=== PATIENT | male | born 1985 | race American Indian/Alaskan Native ===

== ENCOUNTER 2017-08-07 21:13 | Emergency (ER) | payer MEDICAID ==
[2017-08-07 21:28] VITALS: BP 125/80
--- NOTE | 2017-08-07 23:25 | EDM.PDOC ---
ED HPI GENERAL MEDICAL PROBLEM - General Chief Complaint: ENT Problem Stated Complaint: COLD [id number] Time Seen by Provider: 08/07/17 23:20 Source of Information: Reports: Patient History Limitations: Reports: No Limitations - History of Present Illness INITIAL COMMENTS - FREE TEXT/NARRATIVE: c/o ear pain since last Thursday. Both ears draining, sore throat, no recent fevers. Occasional cough Bilateral Ear Pain Score (Numeric/FACES): 9 - Related Data Allergies Allergy/AdvReac Type Severity Reaction Status Date / Time No Known Allergies Allergy Verified 08/07/17 21:28 Home Meds: Home Meds . [No Known Home Meds] 12/14/14 [History] Past Medical History - Past Health History Medical/Surgical History: Denies Medical/Surgical History Social & Family History - Tobacco Use Smoking Status *Q: Never Smoker Years of Tobacco use: 14 Used Tobacco, but Quit: No Second Hand Smoke Exposure: No - Alcohol Use Days Per Week of Alcohol Use: 3 Number of Drinks Per Day: 12 Total Drinks Per Week: 36 - Recreational Drug Use Recreational Drug Use: No Drug Use in Last 12 Months: Yes Recreational Drug Type: Reports: Marijuana/Hashish Recreational Drug Use Frequency: Socially ED ROS ENT - Review of Systems Review Of Systems: See Below Constitutional: Reports: Fever HEENT: Reports: Ear Discharge, Ear Pain Respiratory: Reports: Cough Cardiovascular: Reports: No Symptoms GI/Abdominal: Reports: No Symptoms Musculoskeletal: Reports: No Symptoms Skin: Reports: No Symptoms Neurological: Reports: No Symptoms Psychiatric: Reports: No Symptoms ED EXAM, ENT - Physical Exam Exam: See Below Exam Limited By: No Limitations General Appearance: Alert, Mild Distress Eye Exam: Bilateral Eye: EOMI Ears: Normal External Exam, Canal Discharge, TM Fluid, TM Perforation. No: Normal TMs Nose: Normal Inspection, Normal Mucousa Mouth/Throat: Normal Inspection, Tonsillar Erythema Neck: Normal Inspection, Full Range of Motion Respiratory/Chest: No Respiratory Distress, Lungs Clear, Normal Breath Sounds Cardiovascular: Normal Peripheral Pulses, Regular Rate, Rhythm GI/Abdominal: Soft Extremities: Normal Inspection Neurological: Alert, Oriented Psychiatric: Normal Affect, Normal Mood Skin: Warm, Dry, Intact, Normal Color Course - Vital Signs Last Recorded V/S: Last Vital Signs Temp 97.6 F 08/07/17 21:26 Pulse 65 08/07/17 21:26 Resp 18 08/07/17 21:26 BP 125/80 08/07/17 21:26 Pulse Ox 97 08/07/17 21:26 - Orders/Labs/Meds Meds: Medications Discontinued Medications Generic Name Dose Route Start Last Admin Trade Name Nahid PRN Reason Stop Dose Admin Amoxicillin 500 mg 08/07/17 23:28 08/07/17 23:46 Amoxil PO 08/07/17 23:29 500 mg ONETIME ONE Administration Departure - Departure Time of Disposition: 23:24 Disposition: Home, Self-Care 01 Condition: Good Clinical Impression: Rupture of tympanic membrane with acute suppurative otitis media Qualifiers: Laterality: bilateral Recurrence: not specified as recurrent Qualified Code(s) : H66.013 - Acute suppurative otitis media with spontaneous rupture of ear drum , bilateral URI (upper respiratory infection) Qualifiers: URI type: unspecified viral URI Qualified Code(s): J06.9 - Acute upper respiratory infection, unspecified - Discharge Information Instructions: Eardrum Perforation, [id number] Referrals: PCP,None [Primary Care Provider] - Forms: ED Department Discharge Additional Instructions: tylenol or ibuprofen for discomfort amoxicillin 500mg one three times daily for 10 days follow up in clinic 7-10 days
[2017-08-07] MEDS ORDERED: Amoxicillin 500 MG Cap PO ONE (23:28)
== END 2017-08-07 23:49 | disposition home or self-care (01) ==
LOC: DL.ED 21:13
DX: H66.013 Acute suppurative otitis media with spontaneous rupture of ear drum, bilateral (principal); J06.9 Acute upper respiratory infection, unspecified
CPT/HCPCS: 99282; A9270

== ENCOUNTER 2017-11-20 21:44 | Emergency (ER) | payer MEDICAID ==
[2017-11-20] MEDS ORDERED: Clindamycin Phosphate 900 MG in Sodium Chloride 0.9% 100 ML IV ONE (22:19)
[2017-11-20] MEDS ORDERED: Sodium Chloride 0.9% 1,000 ML IV ONE (22:19)
[2017-11-20 22:27] LABS: CHLORIDE,CL 104 mmol/L (98-109); SODIUM,NA 142 mmol/L (138-146)
--- NOTE | 2017-11-20 22:49 | EDM.PDOC ---
ED HPI GENERAL MEDICAL PROBLEM - General Chief Complaint: Lower Extremity Injury/Pain Stated Complaint: [id number] LEG INFECTED Time Seen by Provider: 11/20/17 22:44 Source of Information: Reports: Patient History Limitations: Reports: No Limitations - History of Present Illness INITIAL COMMENTS - FREE TEXT/NARRATIVE: c/o opened sore left low leg area since Thursday now all reddened and swollen more and painful not seen anyone. Left Ankle Pain Score (Numeric/FACES): 9 - Related Data Allergies Allergy/AdvReac Type Severity Reaction Status Date / Time No Known Allergies Allergy Verified 08/07/17 21:28 Home Meds: Home Meds . [No Known Home Meds] 12/14/14 [History] Past Medical History - Past Health History Medical/Surgical History: Denies Medical/Surgical History Social & Family History - Family History Family Medical History: Noncontributory - Tobacco Use Smoking Status *Q: Never Smoker - Recreational Drug Use Recreational Drug Use: No Review of Systems - Review of Systems Review Of Systems: ROS reveals no pertinent complaints other than HPI. ED EXAM, GENERAL - Physical Exam Exam: See Below Exam Limited By: No Limitations General Appearance: Alert, WD/WN, Mild Distress, Other (leg sore pain) Ears: Hearing Grossly Normal Throat/Mouth: Normal Voice, No Airway Compromise Head: Atraumatic Neck: Non-Tender, Full Range of Motion Respiratory/Chest: No Respiratory Distress Cardiovascular: Regular Rate, Rhythm GI/Abdominal: Soft, Non-Tender Extremities: Other (left lower medial ankle area woth open sore dry, local erythema without lymphangitis, NV wnl, gait limited to pain) Neurological: Alert, Oriented, Normal Cognition, No Motor/Sensory Deficits Psychiatric: Flat Affect Skin Exam: Warm, Dry, Normal Color Lymphatic: No Adenopathy Course - Vital Signs Last Recorded V/S: Last Vital Signs Temp 36.6 C 11/20/17 21:51 Pulse 81 11/20/17 21:51 Resp 16 11/20/17 21:51 BP 122/62 11/20/17 21:51 Pulse Ox 96 11/20/17 21:51 - Orders/Labs/Meds Orders: Active Orders 24 hr Category Date Time Status CULTURE BLOOD [BC] Stat Lab 11/20/17 22:06 Results Labs: Laboratory Tests 11/20/17 11/20/17 Range/Units 22:06 22:06 WBC 8.0 (5.0-10.0) 10^3/uL RBC 4.72 (4.6-6.2) 10^6/uL Hgb 14.1 (14.0-18.0) g/dL Hct 42.1 (40.0-54.0) % MCV 89.2 (80-100) fL MCH 29.9 (27.0-34.0) pg MCHC 33.5 (33.0-35.0) g/dL Plt Count 258 (150-450) 10^3/uL Neut % (Auto) 57.8 (42.2-75.2) % Lymph % (Auto) 31.0 (20.5-50.1) % Stan[place]aus % (Auto) 8.6 H (2-8) % Eos % (Auto) 2.2 (1.0-3.0) % Baso % (Auto) 0.4 (0.0-1.0) % Sodium 142 (138-146) mmol/L Potassium 4.1 (3.5-4.9) mmol/L Chloride 104 (98-109) mmol/L Carbon Dioxide 27 (24-29) mmol/L Anion Gap 15.1 BUN 9 (8-26) mg/dL Creatinine 1.0 (0.6-1.3) mg/dL Est Cr Clr Drug Dosing 83.69 mL/min Estimated GFR (MDRD) > 60 Glucose 107 H (70-105) mg/dL Calcium Meds: Medications Discontinued Medications Generic Name Dose Route Start Last Admin Trade Name Freq PRN Reason Stop Dose Admin Clindamycin Phosphate 900 mg/ 106 mls @ 200 mls/hr 11/20/17 22:19 11/20/17 22 :41 Sodium Chloride IV 11/20/17 22:50 200 mls/hr ONETIME ONE Administration Sodium Chloride 1,000 mls @ 999 mls/hr 11/20/17 22:19 11/20/17 22:40 Normal Saline IV 11/20/17 23:19 999 mls/hr .BOLUS ONE Administration - Re-Assessments/Exams Free Text/Narrative Re-Assessment/Exam: 11/20/17 22:47 results discussed with pt & mother Departure - Departure Time of Disposition: 23:32 Disposition: Home, Self-Care 01 Condition: Good Clinical Impression: Infected open wound - Discharge Information Instructions: Wound Infection, [id number] Referrals: PCP,None [Primary Care Provider] - Forms: ED Department Discharge Additional Instructions: 1) elevate leg as much as possible next 4 to 5 days 2) keep wound clean dry covered 3) wound check Thursday or Thursday at the clinic 4) recheck if looks worse 5) take tyelnol or motrin for pain rx given; clindamycin 150mg qid x 40 - My Orders Last 24 Hours: My Active Orders 11/20/17 22:06 CULTURE BLOOD [BC] Stat - Assessment/Plan Last 24 Hours: My Active Orders 11/20/17 22:06 CULTURE BLOOD [BC] Stat
[2017-11-20 23:37] VITALS: BP 97/56
== END 2017-11-20 23:43 | disposition home or self-care (01) ==
LOC: DL.ED 21:44
DX: S81.802A Unspecified open wound, left lower leg, initial encounter (principal); X58.XXXA Exposure to other specified factors, initial encounter
CPT/HCPCS: 36415; 73600; 80048; 85025; 87040; 96365; 96368; 99283; J7030; J7050; S0077

== ENCOUNTER 2017-12-10 15:47 | Emergency (ER) | payer MEDICAID ==
[2017-12-10 15:57] VITALS: BP 130/96
[2017-12-10] MEDS ORDERED: Ciprofloxacin 500 MG Tab PO ONE (16:33)
[2017-12-10] MEDS ORDERED: Hydrocortisone/Neomycin/Polymyxin B Otic Susp 10 ML Bottle EARLF ONE (16:33)
--- NOTE | 2017-12-10 16:42 | EDM.PDOC ---
Scribed by Kristen Sanchez 12/10/17 0882 for Devon Quintero MD ED HPI GENERAL MEDICAL PROBLEM - General Chief Complaint: ENT Problem Stated Complaint: EAR INFECTION [phone] Time Seen by Provider: 12/10/17 16:27 Source of Information: Reports: Patient, RN, RN Notes Reviewed History Limitations: Reports: No Limitations - History of Present Illness INITIAL COMMENTS - FREE TEXT/NARRATIVE: Patient presents to ER with complaint of left ear pain with drainage x2 days. Onset was after swimming in the [place]. Denies fever or chills. Onset Date: 12/08/17 Duration: Getting Worse Location: Reports: Other (left ear) Quality: Reports: Ache Severity: Moderate Improves with: Reports: None Worsens with: Reports: None Associated Symptoms: Reports: No Other Symptoms Left Ear Pain Score (Numeric/FACES): 9 - Related Data Allergies Allergy/AdvReac Type Severity Reaction Status Date / Time No Known Allergies Allergy Verified 08/07/17 21:28 Home Meds: Home Meds . [No Known Home Meds] 12/14/14 [History] Past Medical History - Past Health History Medical/Surgical History: Denies Medical/Surgical History HEENT History: Reports: Impaired Vision Social & Family History - Family History Family Medical History: Noncontributory - Tobacco Use Smoking Status *Q: Never Smoker - Caffeine Use Caffeine Use: Reports: Coffee, Soda, Tea - Recreational Drug Use Recreational Drug Use: No ED ROS ENT - Review of Systems Review Of Systems: ROS reveals no pertinent complaints other than HPI. ED EXAM, ENT - Physical Exam Exam: See Below Exam Limited By: No Limitations General Appearance: Alert, WD/WN, No Apparent Distress Eye Exam: Bilateral Eye: Normal Inspection Ears: Auricular Tenderness (left), Canal Discharge (yellow left), Canal Swelling (left), Other (right ear normal to exam. ) Nose: Normal Inspection, Normal Mucousa, No Blood Mouth/Throat: Normal Inspection Head: Atraumatic, Normocephalic Neck: Normal Inspection, Supple, Non-Tender, Full Range of Motion Respiratory/Chest: No Respiratory Distress, Lungs Clear, Normal Breath Sounds, No Accessory Muscle Use, Chest Non-Tender Cardiovascular: Normal Peripheral Pulses, Regular Rate, Rhythm, No Edema, No Gallop, No JVD, No Murmur, No Rub GI/Abdominal: Normal Bowel Sounds, Soft, Non-Tender, No Organomegaly, No Distention, No Abnormal Bruit, No Mass (Male) Exam: Deferred Rectal (Males) Exam: Deferred Back: Normal Inspection, Full Range of Motion Extremities: Normal Inspection, Normal Range of Motion, Non-Tender, No Pedal Edema, Normal Capillary Refill Neurological: Alert, Oriented, CN II-XII Intact, Normal Cognition, Normal Gait, Normal Reflexes, No Motor/Sensory Deficits Psychiatric: Normal Affect, Normal Mood Skin: Warm, Dry, Intact, Normal Color, No Rash Course - Vital Signs Last Recorded V/S: Last Vital Signs Temp 36.7 C 12/10/17 15:56 Pulse 64 12/10/17 15:56 Resp 14 12/10/17 15:56 BP 130/96 H 12/10/17 15:56 Pulse Ox 98 12/10/17 15:56 - Orders/Labs/Meds Meds: Medications Discontinued Medications Generic Name Dose Route Start Last Admin Trade Name Desmondq PRN Reason Stop Dose Admin Ciprofloxacin 500 mg 12/10/17 16:33 Ciprofloxacin Hcl PO 12/10/17 16:34 ONETIME ONE Neomycin/Polymyxin/Hydrocortisone 1 ml 12/10/17 16:33 Cortisporin Otic Susp EARLF 12/10/17 16:34 ONETIME ONE Departure - Departure Time of Disposition: 16:31 Disposition: Home, Self-Care 01 Condition: Good Clinical Impression: Left otitis externa Qualifiers: Otitis externa type: swimmer's ear Chronicity: acute Qualified Code(s): H60.332 - Swimmer's ear, left ear - Discharge Information Instructions: Otitis Externa, [id number] Forms: ED Department Discharge Additional Instructions: RX: Cipro 500mg. RX: Cortisporin ear drop. Follow up in 7 to 10 days for ear recheck. Keep ear dry. No swimming. I have read and agree with the documentation that has been completed regarding this visit. By signing this record, I attest that the documentation was completed in my physical presence and is an accurate record of the encounter.
== END 2017-12-10 17:00 | disposition home or self-care (01) ==
LOC: DL.ED 15:47
DX: H60.332 Swimmer's ear, left ear (principal)
CPT/HCPCS: 87070; 87077; 87186; 99283; A9270

== ENCOUNTER 2022-01-11 21:09 | Emergency (ER) | payer MEDICAID ==
[2022-01-11] MEDS ORDERED: Clindamycin HCl 150 MG Cap PO ONE (21:10)
[2022-01-11 22:43] LABS: ANION GAP 10.5 mEq/L (7-13)
[2022-01-11] MEDS: Iopamidol 612 MG/ML 100 ML Bottle IVPUSH ONE (22:58)
[2022-01-12 00:29] VITALS: BP 139/91; PULSE 58
[2022-01-12] MEDS: Clindamycin HCl 150 MG Cap ONE (01:13)
[2022-01-12] MEDS: Mupirocin Oint 22 GM Tube ONE (01:13)
== END 2022-01-12 01:25 | disposition home or self-care (01) ==
LOC: DL.ED 21:09
DX: L03.116 Cellulitis of left lower limb (principal); F17.210 Nicotine dependence, cigarettes, uncomplicated; Z86.16 Personal history of COVID-19
CPT/HCPCS: 36415; 73701-LT; 80053; 80307; 82150; 83605; 85025; 86140; 87040; 87070; 87077; 87186; 87205; 96365; 99284; 99284-25; A9270-GY; J3370; J7050; Q9967